=== PATIENT | male | born 1980 | race Caucasian/White ===

== ENCOUNTER 2017-06-21 22:42 | Emergency (ER) | payer BC ==
[~2017-06-21] VITALS: Ht 188 cm; Wt 111.1 kg
--- NOTE | 2017-06-22 00:02 | NUR ---
CALLED PT IN [place], NO RESPONSE
[2017-06-22 01:34] VITALS: BP 124/73
== END 2017-06-22 02:07 | disposition home or self-care (01) ==
LOC: ER 22:44
DX: I10 Essential (primary) hypertension (principal); F10.10 Alcohol abuse, uncomplicated; F17.200 Nicotine dependence, unspecified, uncomplicated
CPT/HCPCS: 99281; A4606; Z7610; Z7502